=== PATIENT | female | born 1970 | race Caucasian/White ===

== ENCOUNTER 2023-11-02 08:33 | Outpatient (OUT) | payer BC, SELFPAY ==
[2023-11-02 09:08] LABS: Basophils Absolute Auto 0.1 10^3/uL (0.0-0.1); Basophils Percent Auto 1.6 % (0.2-2.0); Eosinophils Absolute Auto 0.2 10^3/uL (0.0-0.7); Eosinophils Percent Auto 4.8 % (0.9-7.0); Hematocrit 36.6 % (36.0-48.0); Hemoglobin 12.1 g/dL (12.0-16.0); Immature Granulocytes Abs Auto 0.01 10^3/uL (0.00-0.03); Immature Granulocytes Pct Auto 0.2 % (0.0-0.5); Lymphocytes Absolute Auto 2.6 10^3/uL (1.2-3.8); Mean Corpuscular HGB Conc 33.1 g/dL (29.9-35.2); Mean Corpuscular Hemoglobin 30.2 pg (26.7-34.0); Mean Corpuscular Volume 91.3 fL (81.0-99.0); Mean Platelet Volume 9.5 fL (9.5-13.5); Monocytes Absolute Auto 0.4 10^3/uL (0.3-0.8); Monocytes Percent Auto 7.3 % (1.7-12.0); Neutrophils Absolute Auto 1.7 10^3/uL (1.4-6.5); Neutrophils Percent Auto 34.1 % (43.0-75.0); Platelet Count 287 10^3/uL (150-450); Red Blood Count 4.01 10^6/uL (4.20-5.40); Red Cell Distribution Width 12.5 % (11.0-15.0)
[2023-11-02 09:09] LABS: Estimated Average Glucose 111 mg/dL; Glycohemoglobin A1C 5.5 % (4.5-6.2)
[2023-11-02 09:41] LABS: Alanine Aminotransferase 20 U/L (14-59); Alkaline Phosphatase 121 U/L (46-116); Aspartate Amino Transferase 16 U/L (15-37); BUN Creatinine Ratio 7.4; Bilirubin Total 0.6 mg/dL (0.2-1.0); Calcium 9.4 mg/dL (8.5-10.1); Carbon Dioxide 29.1 mmol/L (21.0-32.0); Chloride 100 mmol/L (98-107); Estimated GFR (African America >60 (>=60); Estimated GFR (Non-African Ame 53 (>=60); Glucose 86 mg/dL (74-106); Potassium 4.1 mmol/L (3.5-5.1); Sodium 137 mmol/L (136-145)
[2023-11-02 09:42] LABS: Albumin Globulin Ratio 1.2; Albumin Level 4.1 g/dL (3.4-5.0); Chol HDL Ratio 2.5; Cholesterol 228 mg/dL (<=200); Globulin 3.3 g/dL; HDL Cholesterol 90 mg/dL (40-60); Thyroid Stimulating Hormone 0.841 uIU/mL (0.358-3.740); Total Protein 7.4 g/dL (6.4-8.2); Triglycerides 51 mg/dL (<=150); VLDL CHOLESTEROL 10.2 mg/dL
== END 2023-11-02 08:34 | disposition home or self-care (01) ==
LOC: LAB 08:36
PROVIDERS: PCP Family Medicine; Visit Provider Family Medicine
DX: Z00.00 Encounter for general adult medical examination without abnormal findings (principal)
CPT/HCPCS: 36415; 80053; 80061; 83036; 84436; 84443; 84481; 85025

== ENCOUNTER 2024-08-04 06:37 | Emergency (ER) | payer OTHER, BC, SELFPAY ==
[2024-08-04 06:42] VITALS: BP 168/101; PULSE 102; TEMP 36.6; O2SAT 100; BMI 21.9
--- OUTSIDE RECORDS SUMMARY | 2024-08-04 06:47 | XMS_ITS | CCD ---
Author Organization [facility] Care Team Providers Care Finishing Trimmer Name Role Phone CARIN, DR KRAMER Primary Care Unavailable RADHA, PALOMA Admitting Unavailable RADHA, PALOMA Attending Valencia Alvarado, DR Moran Consulting Unavailable RADHA, PALOMA Consulting Unavailable CARIN, DR KRAMER Primary Care Unavailable HALLE, DR EMELYN Brooks Admitting Unavailable HALLE, DR EMELYN Brooks Attending Unavailable HALLE, DR EMELYN Brooks Consulting Unavailable QUITA MARCOS Consulting Unavailable CARIN, DR KRAMER Admitting Unavailable CARIN, DR KRAMER Attending Unavailable CARIN, DR KRAMER Primary Care Unavailable CARIN, DR KRAMER Primary Care Unavailable RADHA, PALOMA Admitting Unavailable PALOMA GARCIA Attending Unavailable DENILSON, DR LIZETT Caro Consulting Unavailable PALOMA GARCIA Consulting Unavailable Allergies Allergy Classification Reported Allergen(s) Allergy Type Date of Onset Reaction(s) Facility (2 sources) predniSONE Drug Allergy 09-01-2016 [facility] Repository Problems Problem Classification Problem Date Documented Da te Episodic/Chronic Abdominal pain (4 sources) Unspecified abdominal pain; Translations: [UNSPECIFIED ABDOMINAL PAIN] Onset: 12-13-2021 Episodic Allergic reactions (1 source) Dermatitis, unspecified; Translations: [DERMATITIS UNSPECIFIED] Onset: 12-13-2021 Episodic Fluid and electrolyte disorders (1 source) Dehydration; Translations: [DEHYDRATION] Onset: 12-15-2021 Episodic Headache; including migraine (4 sources) Migraine, unspecified, not intractable, without status migrainosus; Translations: [MIGRAINE UNS NOT INTRACT W/O SM] Onset: 08-16-2021 Chronic Headache; including migraine (1 source) Headache; including migraine; Translations: [HEADACHE UNSPECIFIED] Onset: 12-15-2021 Nausea and vomiting (1 source) Vomiting, unspecified; Translations: [VOMITING UNSPECIFIED] Onset: 12-15-2021 Episodic Other aftercare (1 source) Other terminal gauger (current) drug therapy; Translations: [OTH CARE HOME CURRENT DRUG THERAPY] Onset: 12-15-2021 Episodic Other connective tissue disease (1 source) Pain in left thigh; Translations: [PAIN IN LEFT THIGH] Onset: 12-15-2021 Episodic Other connective tissue disease (1 source) Pain in right thigh; Translations: [PAIN IN RIGHT THIGH] Onset: 12-15-2021 Episodic Other non-traumatic joint disorders (1 source) Pain in unspecified joint; Translations: [PAIN IN UNSPECIFIED JOINT] Onset: 12-13-2021 Episodic Other skin disorders (3 sources) Rash and other nonspecific skin eruption; Translations: [RASH OTH NONSPECIFIC SKIN ERUPTION] Onset: 12-09-2021 Episodic Other upper respiratory infections (1 source) Chronic sinusitis, unspecified; Translations: [CHRONIC SINUSITIS UNSPECIFIED] Onset: 08-17-2021 Chronic Unclassified (1 source) CONTACT W/AND (SUSP) EXPOS COVID-19; Translations: [CONTACT W/AND (SUSP) EXPOS COVID-19] Onset: 12-13-2021 Viral infection (1 source) Disease caused by 2019-nCoV; Translations: [UNVACCINATED COVID 19] Onset: 12-13-2021 Results Test Name Value Interpretation Reference Range Facil ity CARDIAC EMELYN ADMITon 022 CK <26 Normal 26-192 [facility] Comment on above: Performed By: #### C MP, CRP #### [facility] [address] [address] [address] Dena Winn CK.MB [Mass/Vol] 0.14 ng/mL Normal <=3.60 [facility] Comment on above: Performed By: #### C MP, CRP #### [facility] [address] [address] [address] Dena Winn HSTROP 4.9 pg/mL Normal 4.0-51.3 [facility] Comment on above: Result Comment: CUT- OFF POINTS HAVE BEEN ESTABLISHED BASED ON THE FOURTH UNIVERSAL DEFINITIONS OF MYOCARDIAL INFARCTION. THE UPPER REFERENCE LIMIT (URL) OF TROPONIN, DEFINED THE 99TH PERCENTILE OF cTnI DISTRIBUTION IN A REFERENCE POPULATION, HAS BEEN CONFIRMED THE DECISION THRESHOLD FOR GA DIAGNOSIS. Performed By: #### C MP, CRP #### [facility] [address] [address] [address] Dena Winn ADRIANA 40 ng/mL Normal 9-82 [facility] Comment on above: Performed By: #### C MP, CRP #### [facility] [address] [place] [address] Dr. Dena Winn CBC W MANUAL DIFFon 12-14-19 22 ANISOCYTOSIS 1+ Normal [facility] Comment on above: Performed By: #### C BCMAN #### [facility] [address] [place] [address] Dr. Dena Winn ATYPICAL LYMPH # Normal [facility] Comment on above: Performed By: #### C BCMAN #### [facility] [address] [place] [address] Dr. Dena Winn ATYPICAL LYMPH % Normal [facility] Comment on above: Performed By: #### C BCMAN #### [facility] [address] [place] [address] Dr. Dena Winn BAND # 0.3 103/ul Normal 0.0-0.3 [facility] Comment on above: Performed By: #### C BCMAN #### [facility] [address] [place] [address] Dr. Dena Winn BAND % 2 % Normal 0-5 [facility] Comment on above: Performed By: #### C BCMAN #### [facility] [address] [place] [address] Dr. Dena Winn BASOM # 0.00 103/ul Normal 0.00-0.10 [facility] Comment on above: Performed By: #### C BCMAN #### [facility] [address] [place] [address] Dr. Dena Winn BASOM % 0.0 % Critically low 0.2-2.0 [facility] Comment on above: Performed By: #### C BCMAN #### [facility] [address] [place] [address] Dr. Dena Winn BLAST # Normal [facility] Comment on above: Performed By: #### C BCMAN #### [facility] [address] [place] [address] Dr. Dena Winn BLAST % Normal [facility] Comment on above: Performed By: #### C TAMICA #### [facility] [address] [address] [address] Dena Winn CORRECTED WBC Normal 4.0-11.0 [facility] Comment on above: Performed By: #### C TAMICA #### [facility] [address] [address] [address] Dena Winn EOS # 0.00 103/ul Normal 0.00-0.70 [facility] Comment on above: Performed By: #### C TAMICA #### [facility] [address] [address] [address] Dena Winn EOS% 0.0 % Critically low 0.9-7.0 [facility] Comment on above: Performed By: #### C TAMICA #### [facility] [address] [address] [address] Dena Winn HCT 33.2 % Critically low 36.0-48.0 [facility] Comment on above: Performed By: #### C TAMICA #### [facility] [address] [address] [address] Dena Winn HGB 11.3 g/dl Critically low 12.0-16.0 [facility] Comment on above: Performed By: #### C TAMICA #### [facility] [address] [address] [address] Dena Winn LYMPHM # 4.06 103/ul Critically high 1.20-3.80 [facility] Comment on above: Performed By: #### C TAMICA #### [facility] [address] [address] [address] Dena Winn LYMPHM% 26.0 % Normal 20.5-60.0 [facility] Comment on above: Performed By: #### C TAMICA #### [facility] [address] [address] [address] Dena Winn MCH 30.5 pg Normal 26.7-34.0 [facility] Comment on above: Performed By: #### C TAMICA #### [facility] [address] [place] [address] Dr. Dena Winn MCHC 34.0 g/dl Normal 29.9-35.2 [facility] Comment on above: Performed By: #### C TAMICA #### [facility] [address] [place] [address] Dr. Dena Winn MCV 89.5 fL Normal 81.0-99.0 [facility] Comment on above: Performed By: #### C TAMICA #### [facility] [address] [place] [address] Dr. Dena Winn METAMYELOCYTE # Normal [facility] Comment on above: Performed By: #### C TAMICA #### [facility] [address] [place] [address] Dr. Dena Winn METAMYELOCYTE % Normal [facility] Comment on above: Performed By: #### C TAMICA #### [facility] [address] [place] [address] Dr. Dena Winn MONOM# 1.87 103/ul Critically high 0.30-0.[address] [facility] Comment on above: Performed By: #### C TAMICA #### [facility] [address] [place] [address] Dr. Dena Winn MONOM% 12.0 % Normal 1.7-12.0 [facility] Comment on above: Performed By: #### C TAMICA #### [facility] [address] [place] [address] Dr. Dena Winn MPV 9.2 fL Critically low 9.5-13.5 [facility] Comment on above: Performed By: #### C TAMICA #### [facility] [address] [place] [address] Dr. Dena Winn MYELOCYTE # Normal [facility] Comment on above: Performed By: #### C TAMICA #### [facility] [address] [place] [address] Dr. Dena Winn MYELOCYTE % Normal [facility] Comment on above: Performed By: #### C TAMICA #### [facility] [address] [place] [address] Dr. Dena Winn NRBC Normal [facility] Comment on above: Performed By: #### C BCMAN #### [facility] [address] [place] [address] Dr. Dena Winn PLT 337 103/ul Normal 150-450 [facility] Comment on above: Performed By: #### C BCMAN #### [facility] [address] [place] [address] Dr. Dena Winn RBC 3.71 106/ul Critically low 4.20-5.40 [facility] Comment on above: Performed By: #### C BCMAN #### [facility] [address] [place] [address] Dr. Dena Winn RDW 14.2 % Normal 11.0-15.0 [facility] Comment on above: Performed By: #### C BCMAN #### [facility] [address] [place] [address] Dr. Dena Winn SEG # 9.36 103/ul Critically high 1.40-6.[address] [facility] Comment on above: Performed By: #### C BCMAN #### [facility] [address] [place], [place] [id number] Dr. Dena Winn SEG % 60.0 % Normal 43.0-75.0 [facility] Comment on above: Performed By: #### C BCMAN #### [facility] [address] [place] [address] Dr. Dena Winn WBC 15.6 103/ul Critically high 4.0-11.[address] [facility] Comment on above: Performed By: #### C BCMAN #### [facility] [address] [place] [address] ABD/PELVIS WO CONon 12-13 CT ABD/PELVIS WO CON EXAMINATION: CT ABD/PELVIS WO CON HISTORY: UNSPECIFIED ABDOMINAL PAIN , disorientation, bilateral lower quadrant pain COMPARISON: No relevant comparison available. TECHNIQUE: Axial, Coronal, and Sagittal images were created without IV contrast. Dose reduction techniques were achieved by using automated exposure control and/or adjustment of mA and/or kV according to patient size and/or use of iterative reconstruction technique. FINDINGS: LUNG BASES: No visible pulmonary or pleural disease. LIVER: No enlargement, atrophy, suspicious density, or significant focal lesion. BILIARY: No dilatation or calcification. PANCREAS: No lesion, fluid collection, or abnormal duct dilatation. SPLEEN: No enlargement or focal lesion. ADRENALS: No mass or enlargement. KIDNEYS: No mass, obstruction, or calcification. BOWEL/MESENTERY: Large amount of stool within proximal and mid colon. No visible mass, obstruction, or bowel wall thickening. Normal appendix. AORTA/VASCULAR: No aneurysm or dissection. RETROPERITONEUM: No mass or adenopathy. LYMPH NODES: No adenopathy. URINARY BLADDER: No visible focal wall thickening, lesion, or calculus. PELVIC ORGANS: No visible mass. Pelvic organs appropriate for patient age. ABDOMINAL WALL: No mass or hernia. BONES: No bony lesion or fracture. OTHER: Negative. IMPRESSION: 1. No acute or suspicious findings to account for patient's symptoms. Electronically authenticated by: AGUSTIN ALVARADO Date: 2021-12-13 12:14 Normal [facility] CT HEAD WO CONon 12-13-2021 CT HEAD WO CON EXAMINATION: CT HEAD WO CON HISTORY: DISORIENTATION, UNSPECIFIED , frontal headache COMPARISON: No relevant comparison available. TECHNIQUE: Axial CT images were obtained without IV contrast. Dose reduction techniques were achieved by using automated exposure control and/or adjustment of mA and/or kV according to patient size and/or use of iterative reconstruction technique. FINDINGS: BRAIN: No edema, hemorrhage, mass, acute infarction, or inappropriate atrophy. CSF SPACES: No hydrocephalus, subarachnoid hemorrhage, or mass. Appropriate for age. SKULL: No fracture, mass, or other significant visible lesion. SINUSES: No significant mucosal thickening or fluid on the limited views. ORBITS: No appreciable abnormality on the limited views. OTHER: Negative IMPRESSION: 1. Normal CT appearance of the brain. Electronically authenticated by: AGUSTIN ALVARADO Date: 2021-12-13 12:06 Normal [facility] ER URINE PROFILEon 2 Bilirubin Ql (U) Negative Normal NEGATIVE [facility] Comment on above: Performed By: #### E RUR #### [facility] [address] [place] [address] Dr. Dena Winn Clarity (U) SL CLOUDY Abnormal CLEAR [facility] Comment on above: Performed By: #### E RUR #### [facility] [address] [place] [address] Dr. Dena Winn Color (U) LT. YELLOW Normal YELLOW [facility] Comment on above: Performed By: #### E RUR #### [facility] [address] [place] [address] Dr. Dena Winn ERUAHD A micrscopic examination will be performed if indicated. Normal [facility] Comment on above: Performed By: #### E RUR #### [facility] [address] [place] [address] Dr. Dena Winn Glucose Ql (U) Negative Normal NEGATIVE [facility] Comment on above: Performed By: #### E RUR #### [facility] [address] [place] [address] Dr. Dena Winn Hemoglobin Ql (U) Negative Normal NEGATIVE [facility] Comment on above: Performed By: #### E RUR #### [facility] [address] [place] [address] Dr. Dena Winn Ketones Ql (U) Negative Normal NEGATIVE [facility] Comment on above: Performed By: #### E RUR #### [facility] [address] [place] [address] Dr. Dena Winn LEUKOCYTES Negative Normal NEGATIVE [facility] Comment on above: Performed By: #### E RUR #### [facility] [address] [place] [address] Dr. Dena Winn Nitrite Ql (U) Negative Normal NEGATIVE [facility] Comment on above: Performed By: #### E RUR #### [facility] [address] [place] [address] Dr. Dena Winn pH (U) 8.5 [pH] Normal 5-9 [facility] Comment on above: Performed By: #### E RUR #### [facility] [address] [place] [address] Dr. Dena Winn SPEC GRAVITY 1.015 Normal 1.005-<=1.025 [facility] Comment on above: Performed By: #### E RUR #### [facility] [address] [place] [address] Dr. Dena Winn UA PROTEIN Negative Normal NEGATIVE/ TRACE [facility] Comment on above: Performed By: #### E RUR #### [facility] [address] [place] [address] Dr. Dena Winn UR MICRO IND NOT INDICATED Normal [facility] Comment on above: Performed By: #### E RUR #### [facility] [address] [place] [address] Dr. Dena Winn Urobilinogen Qn (U) 0.2 {Manoj'U}/dL Normal 0.2 - 1. 0 [facility] Comment on above: Performed By: #### E RUR #### [facility] [address] [place] [address] Dr. Dena Winn PROF 14(COMP METB)on 022 Albumin [Mass/Vol] 3.3 g/dL Critically low 3.4-5.0 [facility] Comment on above: Performed By: #### C MP, CRP #### [facility] [address] [place] [address] Dr. Dena Winn Albumin/Globulin [Mass ratio] 1.0 {ratio} Normal [facility] Comment on above: Performed By: #### C MP, CRP #### [facility] [address] [place] [address] Dr. Dena Winn ALP [Catalytic activity/Vol] 123 U/L Critically high 46-116 [facility] Comment on above: Performed By: #### C MP, CRP #### [facility] [address] [place] [address] Dr. Dena Winn ALT [Catalytic activity/Vol] 43 U/L Normal 14-59 [facility] Comment on above: Performed By: #### C MP, CRP #### [facility] [address] [place] [address] Dr. Dena Winn Anion gap [Moles/Vol] 13.7 mmol/L Normal [facility] Comment on above: Performed By: #### C MP, CRP #### [facility] [address] [address] [address] Dena Winn AST [Catalytic activity/Vol] 16 U/L Normal 15-37 [facility] Comment on above: Performed By: #### C MP, CRP #### [facility] [address] [address] [address] Dena Winn Bilirubin [Mass/Vol] 0.6 mg/dL Normal 0.2-1.0 [facility] Comment on above: Performed By: #### C MP, CRP #### [facility] [address] [address] [address] Dena Winn Calcium [Mass/Vol] 9.0 mg/dL Normal 8.5-10.1 [facility] Comment on above: Performed By: #### C MP, CRP #### [facility] [address] [place] [address] Dr. Dena Winn Chloride [Moles/Vol] 102 mmol/L Normal 98-107 [facility] Comment on above: Performed By: #### C MP, CRP #### [facility] [address] [address] [address] Dena Winn CO2 [Moles/Vol] 24.4 mmol/L Normal 21.0-32.[address] [facility] Comment on above: Performed By: #### C MP, CRP #### [facility] [address] [place] [address] Dr. Dena Winn Creatinine [Mass/Vol] 1.08 mg/dL Critically high 0.55-1.02 [facility] Comment on above: Performed By: #### C MP, CRP #### [facility] [address] [address] [address] Dena Winn EGFR-AF MALAYSIAN >60 Normal >=[address] [facility] Comment on above: Performed By: #### C MP, CRP #### [facility] [address] [address] [address] Dena Winn EGFR-NON AF MALAYSIAN 53 mL/min/1.73m2 Critically low >=60 [facility] Comment on above: Performed By: #### C MP, CRP #### [facility] [address] [address] [address] Dena Winn Globulin (S) [Mass/Vol] 3.3 g/dL Normal [facility] Comment on above: Performed By: #### C MP, CRP #### [facility] [address] [address] [address] Dena Winn Glucose [Mass/Vol] 100 mg/dL Normal 74-[address] [facility] Comment on above: Performed By: #### C MP, CRP #### [facility] [address] [address] [address] Dena Winn Potassium [Moles/Vol] 3.1 mmol/L Critically low 3.5-5.1 [facility] Comment on above: Performed By: #### C MP, CRP #### [facility] [address] [place] [address] Dr. Dena Winn Protein [Mass/Vol] 6.6 g/dL Normal 6.4-8.[address] [facility] Comment on above: Performed By: #### C MP, CRP #### [facility] [address] [address] [address] Dena Winn Sodium [Moles/Vol] 137 mmol/L Normal 136-145 [facility] Comment on above: Performed By: #### C MP, CRP #### [facility] [address] [place] [address] Dr. Dena Winn Urea nitrogen [Mass/Vol] 13.0 mg/dL Normal 7.0-18.0 [facility] Comment on above: Performed By: #### C MP, CRP #### [facility] [address] [address] [address] Dena Winn Urea nitrogen/Creatinine [Mass ratio] 12.0 mg/mg Normal [facility] Comment on above: Performed By: #### C MP, CRP #### [facility] [address] [address] [address] Dena Winn CBC AUTO DIFFon 12-09-2021 BASO # 0.0 103/ul Normal 0.0-0.1 [facility] Comment on above: Performed By: #### C MP, CRP #### [facility] [address] [place] [address] Dr. Dena Winn Basophils/100 WBC (Bld) 0.2 % Normal 0.2-2.0 [facility] Comment on above: Performed By: #### C MP, CRP #### [facility] [address] [place] [address] Dr. Dena Winn EO # 0.0 103/ul Normal 0.0-0.7 [facility] Comment on above: Performed By: #### C MP, CRP #### [facility] [address] [place] [address] Dr. Dena Winn Eosinophils/100 WBC (Bld) 0.1 % Critically low 0.9-7.0 [facility] Comment on above: Performed By: #### C MP, CRP #### [facility] [address] [place] [address] Dr. Dena Winn Erythrocyte distribution width (RBC) [Ratio] 14.1 % Normal 11.0-15.0 [facility] Comment on above: Performed By: #### C MP, CRP #### [facility] [address] [place] [address] Dr. Dena Winn Hematocrit (Bld) [Volume fraction] 35.1 % Critically low 36.0-48.0 [facility] Comment on above: Performed By: #### C MP, CRP #### [facility] [address] [place] [address] Dr. Dena Winn Hemoglobin (Bld) [Mass/Vol] 12.1 g/dL Normal 12.0-16.0 [facility] Comment on above: Performed By: #### C MP, CRP #### [facility] [address] [place] [address] Dr. Dena Winn IG # 0.03 10e3/ul Normal 0.00-0.03 [facility] Comment on above: Performed By: #### C MP, CRP #### [facility] [address] [place] [address] Dr. Dena Winn IG % 0.4 % Normal 0.0-0.5 [facility] Comment on above: Performed By: #### C MP, CRP #### [facility] [address] [place] [address] Dr. Dena Winn LYMPH # 1.8 103/ul Normal 1.2-3.8 [facility] Comment on above: Performed By: #### C MP, CRP #### [facility] [address] [place] [address] Dr. Dena Winn Lymphocytes/100 WBC (Bld) 21.7 % Normal 20.5-60.0 [facility] Comment on above: Performed By: #### C MP, CRP #### [facility] [address] [place] [address] Dr. Dena Winn MANUAL DIFF REQ NO Normal [facility] Comment on above: Performed By: #### C MP, CRP #### [facility] [address] [place] [address] Dr. Dena Winn MCH (RBC) [Entitic mass] 30.6 pg Normal 26.7-34.0 [facility] Comment on above: Performed By: #### C MP, CRP #### [facility] [address] [place] [address] Dr. Dena Winn MCHC (RBC) [Mass/Vol] 34.5 g/dL Normal 29.9-35.2 [facility] Comment on above: Performed By: #### C MP, CRP #### [facility] [address] [place] [address] Dr. Dena Winn MCV (RBC) [Entitic vol] 88.9 fL Normal 81.0-99.0 [facility] Comment on above: Performed By: #### C MP, CRP #### [facility] [address] [place] [address] Dr. Dena Winn MONO # 0.3 103/ul Normal 0.3-0.8 [facility] Comment on above: Performed By: #### C MP, CRP #### [facility] [address] [place] [address] Dr. Dena Winn Monocytes/100 WBC (Bld) 4.0 % Normal 1.7-12.0 [facility] Comment on above: Performed By: #### C MP, CRP #### [facility] [address] [place] [address] Dr. Dena Winn NEUT # 6.0 103/ul Normal 1.4-6.5 [facility] Comment on above: Performed By: #### C MP, CRP #### [facility] [address] [place] [address] Dr. Dena Winn Neutrophils/100 WBC (Bld) 73.6 % Normal 43.0-75.0 [facility] Comment on above: Performed By: #### C MP, CRP #### [facility] [address] [place] [address] Dr. Dena Winn Platelet mean volume (Bld) [Entitic vol] 11.5 fL Normal 9.5-13.5 [facility] Comment on above: Performed By: #### C MP, CRP #### [facility] [address] [place] [address] Dr. Dena Winn PLT 108 103/ul Critically low 150-450 [facility] Comment on above: Performed By: #### C MP, CRP #### [facility] [address] [place] [address] Dr. Dena Winn RBC 3.95 106/ul Critically low 4.20-5.40 [facility] Comment on above: Performed By: #### C MP, CRP #### [facility] [address] [place] [address] Dr. Dena Winn WBC 8.1 103/ul Normal 4.0-11.0 [facility] Comment on above: Performed By: #### C MP, CRP #### [facility] [address] [place] [address] Dr. Dena Winn CRPon 12-09-2021 CRP 31.8 mg/dL Critically high <=1.0 [facility] Comment on above: Performed By: #### C MP, CRP #### [facility] [address] [place] [address] Dr. Dena Winn CULTURE BLOODon 12-09-2021 Microscopic examination of blood, culture Culture Observations: NO GROWTH AT 5 DAYS. Normal [facility] Comment on above: Performed By: #### C MP, CRP #### [facility] [address] [place] [address] Dr. Dena Winn Microscopic examination of blood, culture Culture Observations: NO GROWTH AT 5 DAYS. Normal [facility] Comment on above: Performed By: #### C MP, CRP #### [facility] [address] [address] [address] Dena Winn Covid-19 PCR (CVDTB)on 11-30 SARS-CoV-2 (COVID-19) RNA PAM+probe Ql (Unsp spec) Not detected Normal NOT DETECTED [facility] Comment on above: Result Comment: When diagnostic testing is negative, the possibility of a false negative should be considered in the context of a patient's recent exposures and the presence of clinical signs and symptoms consistent with SARS-CoV-2. This test is not yet approved or cleared by the [place] FDA. When there are no FDA-approved or cleared tests available, and other criteria are met, FDA can make tests available under an emergency access mechanism called an Emergency Use Authorization (EUA). The EUA for this test is supported by the [place] of Health and Human Service's declaration that circumstances exist to justify the emergency use of in vitro diagnostics for the detection and/or diagnosis of the virus that causes COVID-19. This EUA will remain in effect for the duration of the COVID-19 declaration justifying emergency of IVDs, unless it is terminated or revoked by the FDA (after which the test may no longer be used). Performed By: #### C VDTBH #### [facility] [address] [place] [address] Dr. Dena Winn ER URINE PROFILEon 2 Bilirubin Ql (U) Negative Normal NEGATIVE [facility] Comment on above: Performed By: #### E AR SAL #### [facility] [address] [place] [address] Dr. Dena Winn Clarity (U) CLEAR Normal CLEAR [facility] Comment on above: Performed By: #### Cammie SAL UMICRO #### [facility] [address] [place] [address] Dr. Dena Winn Color (U) LT. YELLOW Normal YELLOW [facility] Comment on above: Performed By: #### Cammie SAL UMICRO #### [facility] [address] [place] [address] Dr. Dena Winn ERUAHKalee A micrscopic examination will be performed if indicated. Normal [facility] Comment on above: Performed By: #### Cammie SAL UMICRO #### [facility] [address] [place] [address] Dr. Dena Winn Glucose Ql (U) Negative Normal NEGATIVE [facility] Comment on above: Performed By: #### Cammie SAL UMICRO #### [facility] [address] [place] [address] Dr. Dena Winn Hemoglobin Ql (U) Negative Normal NEGATIVE [facility] Comment on above: Performed By: #### Cammie SAL UMICRO #### [facility] [address] [place] [address] Dr. Dena Winn Ketones Ql (U) TRACE Abnormal NEGATIVE [facility] Comment on above: Performed By: #### Cammie SAL UMICRO #### [facility] [address] [place] [address] Dr. Dena Winn LEUKOCYTES TRACE Abnormal NEGATIVE [facility] Comment on above: Performed By: #### Cammie SAL UMICRO #### [facility] [address] [place] [address] Dr. Dena Winn Nitrite Ql (U) Negative Normal NEGATIVE [facility] Comment on above: Performed By: #### Cammie SAL UMICRO #### [facility] [address] [place] [address] Dr. Dena Winn pH (U) 7.0 [pH] Normal 5-9 [facility] Comment on above: Performed By: #### Cammie SAL UMICRO #### [facility] [address] [place] [address] Dr. Dena Winn SPEC GRAVITY 1.010 Normal 1.005-<=1.025 [facility] Comment on above: Performed By: #### Cammie SAL UMABDIASRO #### [facility] [address] [place] [address] Dr. Dena Winn UA PROTEIN TRACE Normal NEGATIVE/ TRACE [facility] Comment on above: Performed By: #### SHAYE TOSCANORO #### [facility] [address] [place] [address] Dr. Dena Winn UR MICRO IND INDICATED Normal [facility] Comment on above: Performed By: #### SHAYE TOSCANORO #### [facility] [address] [place] [address] Dr. Dena Winn Urobilinogen Qn (U) 1.0 {Manoj'U}/dL Normal 0.2 - 1. 0 [facility] Comment on above: Performed By: #### SHAYE TOSCANORO #### [facility] [address] [place] [address] Dr. Dena Winn GROUP A STREP CULTUREon 11-30 S. pyogenes Ag Ql (Unsp spec) Culture Observations: Negative for Group A Streptococcus Normal [facility] Comment on above: Performed By: #### S SCRN, GRASTCX #### [facility] [address] [place] [address] Dr. Dena Winn INFLUENZA A AND B AGon 12-09 INFLUANEGH SEE BELOW Normal [facility] Comment on above: Result Comment: Nega tive for Flu A protein angiten. Infection due to Flu A cannot be ruled out. Flu A angiten in the sample may be below the detection limit of the test. Performed By: #### I NFLUAB #### [facility] [address] [place] [address] Dr. Dena Winn INFLUBNEGH SEE BELOW Normal [facility] Comment on above: Result Comment: Nega tive for Flu B protein antigen. Infection due to Flu B cannot be ruled out. Flu B antigen in the sample may be below the detection limit of the test. Performed By: #### I NFLUAB #### [facility] [address] [place] [address] Dr. eDna Winn INFLUENZA A AG Negative Normal NEGATIVE SEE COMMENT [facility] Comment on above: Performed By: #### I NFLUAB #### [facility] [address] [place] [address] Dr. Dena Winn INFLUENZA B AG Negative Normal NEGATIVE SEE COMMENT [facility] Comment on above: Performed By: #### I NFLUAB #### [facility] [address] [place] [address] Dr. Dena Winn INTERNAL CONTROLS Within Normal Limits Normal Wi thin Normal Limits [facility] Comment on above: Performed By: #### I NFLUAB #### [facility] [address] [place] [address] Dr. Dena Winn LACTATE/LACTIC ACIDon 2021 Lactate [Moles/Vol] 0.6 mmol/L Normal 0.4-1.[address] [facility] Comment on above: Performed By: #### C MP, CRP #### [facility] [address] [place] [address] Dr. Dena Winn MONOon 12-09-2021 Monocytes (Bld) [#/Vol] Negative Normal NEGATIVE [facility] Comment on above: Performed By: #### M MEGHANA #### [facility] [address] [place] [address] Dr. Dena Winn PROF 14(COMP METB)on 022 Albumin [Mass/Vol] 3.1 g/dL Critically low 3.4-5.0 [facility] Comment on above: Performed By: #### C MP, CRP #### [facility] [address] [place] [address] Dr. Dena Winn Albumin/Globulin [Mass ratio] 0.9 {ratio} Normal [facility] Comment on above: Performed By: #### C MP, CRP #### [facility] [address] [place] [address] Dr. Dena Winn ALP [Catalytic activity/Vol] 155 U/L Critically high 46-116 [facility] Comment on above: Performed By: #### C MP, CRP #### [facility] [address] [address] [address] Dena Winn ALT [Catalytic activity/Vol] 63 U/L Critically high 14-59 [facility] Comment on above: Performed By: #### C MP, CRP #### [facility] [address] [address] [address] Dena Winn Anion gap [Moles/Vol] 13.6 mmol/L Normal [facility] Comment on above: Performed By: #### C MP, CRP #### [facility] [address] [address] [address] Dena Winn AST [Catalytic activity/Vol] 38 U/L Critically high 15-37 [facility] Comment on above: Performed By: #### C MP, CRP #### [facility] [address] [address] [address] Dena Winn Bilirubin [Mass/Vol] 0.4 mg/dL Normal 0.2-1.0 [facility] Comment on above: Performed By: #### C MP, CRP #### [facility] [address] [address] [address] Dena Winn Calcium [Mass/Vol] 8.8 mg/dL Normal 8.5-10.1 [facility] Comment on above: Performed By: #### C MP, CRP #### [facility] [address] [address] [address] Dena Winn Chloride [Moles/Vol] 97 mmol/L Critically low 98-107 [facility] Comment on above: Performed By: #### C MP, CRP #### [facility] [address] [address] [address] Dena Winn CO2 [Moles/Vol] 26.0 mmol/L Normal 21.0-32.0 [facility] Comment on above: Performed By: #### C MP, CRP #### [facility] [address] [address] [address] Dena Winn Creatinine [Mass/Vol] 1.13 mg/dL Critically high 0.55-1.02 [facility] Comment on above: Performed By: #### C MP, CRP #### [facility] [address] [address] [address] Dena Winn EGFR-AF MALAYSIAN >60 Normal >=[address] [facility] Comment on above: Performed By: #### C MP, CRP #### [facility] [address] [address] [address] Dena Winn EGFR-NON AF MALAYSIAN 51 mL/min/1.73m2 Critically low >=60 [facility] Comment on above: Performed By: #### C MP, CRP #### [facility] [address] [address] [address] Dena Winn Globulin (S) [Mass/Vol] 3.4 g/dL Normal [facility] Comment on above: Performed By: #### C MP, CRP #### [facility] [address] [place] [address] Dr. Dena Winn Glucose [Mass/Vol] 91 mg/dL Normal 74-106 [facility] Comment on above: Performed By: #### C MP, CRP #### [facility] [address] [address] [address] Dena Winn Potassium [Moles/Vol] 3.6 mmol/L Normal 3.5-5.1 [facility] Comment on above: Performed By: #### C MP, CRP #### [facility] [address] [place] [address] Dr. Dena Winn Protein [Mass/Vol] 6.5 g/dL Normal 6.4-8.2 [facility] Comment on above: Performed By: #### C MP, CRP #### [facility] [address] [address] [address] Dena Winn Sodium [Moles/Vol] 133 mmol/L Critically low 136-145 [facility] Comment on above: Performed By: #### C MP, CRP #### [facility] [address] [address] [address] Dena Winn Urea nitrogen [Mass/Vol] 17.0 mg/dL Normal 7.0-18.0 [facility] Comment on above: Performed By: #### C MP, CRP #### [facility] [address] [address] [address] Dena Winn Urea nitrogen/Creatinine [Mass ratio] 15.0 mg/mg Normal [facility] Comment on above: Performed By: #### C MP, CRP #### [facility] [address] [address] [address] Dena Winn SED RATE WESTERGRENon 2021 SED RATE 32 mm/hr Critically high <=30 [facility] Comment on above: Performed By: #### C MP, CRP #### [facility] [address] [place] [address] Dr. Dena Winn STREPT SCREENon 12-09-2021 STREP SCREEN A Negative Normal NEGATIVE [facility] Comment on above: Performed By: #### S SCRN, GRASTCX #### [facility] [address] [place] [address] Dr. Dena Winn URINE MICROSCOPIC ONLYon BACTERIA NONE SEEN Normal NONE SEEN [facility] Comment on above: Performed By: #### C MP, CRP #### [facility] [address] [place] [address] Dr. Dena Winn Bacteria identified Cx Nom (U) NOT INDICATED Normal [facility] Comment on above: Performed By: #### C MP, CRP #### [facility] [address] [place] [address] Dr. Dena Winn CAST NONE SEEN Normal NONE SEEN [facility] Comment on above: Performed By: #### C MP, CRP #### [facility] [address] [place] [address] Dr. Dena Winn Crystals LM Nom (Urine sed) NONE SEEN Normal NONE SEEN [facility] Comment on above: Performed By: #### C MP, CRP #### [facility] [address] [place] [address] Dr. Dena Winn Epithelial cells LM Ql (Urine sed) FEW Abnormal NONE SEEN /RARE [facility] Comment on above: Performed By: #### C MP, CRP #### [facility] [address] [place], [place] [id number] Dr. Dena Winn MUCOUS NONE SEEN Normal NONE SEEN [facility] Comment on above: Performed By: #### C MP, CRP #### [facility] [address] [place] [address] Dr. Dena Winn RBC NONE SEEN Abnormal 0-2 [facility] Comment on above: Performed By: #### C MP, CRP #### [facility] [address] [address] [address] Dena Winn WBC 0-2 Abnormal NONE SEEN [facility] Comment on above: Performed By: #### C MP, CRP #### [facility] [address] [address] [address] Dena Winn XR CHEST 1 Von 12-09-2021 XR CHEST 1 V EXAMINATION: XR CHEST 1 V HISTORY: COUGH COMPARISON: 03/04/2018 TECHNIQUE: AP portable erect FINDINGS: LUNGS: No significant pulmonary parenchymal abnormalities. VASCULATURE: No increased pulmonary vasculature. PLEURA: No pneumothorax, effusion, or pleural thickening. Elevation of the left hemidiaphragm CARDIAC: No cardiomegaly or cardiac silhouette abnormality. MEDIASTINUM: No visible mass or adenopathy. BONES: No fracture or visible bone lesion. OTHER: Negative. IMPRESSION: Clear lungs Electronically authenticated by: LIZETT OREILLY Date: 2021-12-09 11:49 Normal [facility] CT HEAD WO CONon 08-16-2021 CT HEAD WO CON INDICATION: 51 years old; Female. Headache. History of migraine. TECHNIQUE: CT Head (ax/cor/sag reformats). Ionizing radiation dose reduced via iterative reconstruction/FBP blend and body size kV/mA adjustment. Comparison: None FINDINGS: POSTOPERATIVE CHANGES: None. BRAIN PARENCHYMA: No hemorrhage, mass or acute infarct. White matter is normal for age. VENTRICLES/EXTRA-AXI AL SPACES: No hydrocephalus. SINUSES/MASTOIDS: Minimal mucoperiosteal thickening the ethmoid sinuses. No fluid levels. Mastoid air cells are clear. MSK: No skull fractures. OTHER: No hyperdense intraluminal thrombus is seen. IMPRESSION: 1. No acute intracranial abnormality. No hemorrhage or mass effect. 2. Ethmoid thickening. Electronically authenticated by: QUITA MARCOS Date: 2021-08-16 00:00 Normal [facility] Encounters Encounter Date Encounter Type Care Provider Facility Start: 12-13-2021 End: 12-13-[address] CARVAJALJOEY GAMASamson Facility:[facility] Start: 12-09-2021 End: 12-09-[address] CARVAJALJOEY GAMASamson Facility:[facility] Start: 08-24-[address] CARVAJALJOEY DEL ROSARIO Facility :[facility] Start: 08-16-2021 End: 08-16-[address] CARVAJALJOEY GAMASamson Facility:[facility] Payers Date Payer Category Payer Unknown [id number] 2.16.84 [id number] 1970 Unknown [id number] 2.16.84 [id number] 1970 Unknown [id number] 2.16.84 [id number] 1970 Unknown [id number] 2.16.84 [id number] 1959 Self-pay [id number] 1959 Unknown [id number] Summary Purpose Family History No Family History Records Found Advance Directives No Advanced Directives Records Found Additional Source Comments INFORMATION SOURCE (unrecogn ized section and content) DATE CREATED AUTHOR 12/15/2021 [facility] FOR RECORDS PERTAINING TO PATIENTS WHO ARE OR HAVE BEEN ENROLLED IN A CHEMICAL DEPENDENCY/SUBSTANCEABUSE PROGRAM, SOME INFORMATION MAY BE OMITTED. This clinical summary was aggregated from multiple sources. Caution should be exercised in using it in the provision of clinical care. This summary normalizes information from multiple sources, and as a consequence, information in this document may materially change the coding, format and clinical context of patient data. In addition, data may be omitted in some cases. CLINICAL DECISIONS SHOULD BE BASED ON THE PRIMARY CLINICAL RECORDS. [employer] provides no warranty or guarantee of the accuracy or completeness of information in this document.
--- NOTE | 2024-08-04 06:51 | ED_ITS ---
HPI HPI - General Adult General Chief complaint: Headache Stated complaint: HEADACHE Time Seen by Provider: 08/04/24 06:45 Source: patient Mode of arrival: walk-in Limitations: no limitations History of Present Illness HPI narrative: The patient is a 54-year-old female with a history of syringomyelia and daily headaches. She is presenting today for a migraine headache that has been prese nt for 8 days. She believes that the barometric pressure has made it worse. Nothing has made it better. She is prescribed sumatriptan, which she took last night and again this morning without any relief. Patient states that she is also prescribed [place] but she does not like to take them because she does not want to get addicted. Patient states that the headache is all over. It is associated with photophobia and intense nausea and vomiting. Patient's not been able to eat or drink for several days. The pain is a 10 out of 10 but is not the worst headache she is ever had in her life. She states that she lives with daily headaches but the level is typically of 4-5 out of 10. Patient does not have any neurologic symptoms such as confusion, incoordination, trouble speaking, trouble comprehending, numbness or weakness. Patient has had numerous imaging including CTs and MRIs. Patient saw Dr. Mejia for this last week. He provided her an injection which she believes was Toradol and Nubain. Patient states that the headache does not radiate. It is throbbing like in sensation. Related Data Allergies Allergy/AdvReac Type Severity Reaction Status Date / Time No Known Drug Allergies Allergy Verified 08/04/24 06:41 Opioid HPI Opioid Management Most Recent Opioid Data: Last Pain Scale 10 08/04/24 06:48 08/04/24 Review of Systems ROS Narrative 10 Systems were reviewed, and unless not ed in the HPI, all other systems are reviewed, unremarkable, or noncontributory. PFSH PFS Social History Little interest or pleasure in doing things: not at all Feeling down, depressed, or hopeless: not at all Exam Narrative Exam Narrative: Prior to examining the patient, I have washed with hospital approved and provided Antiseptic Hand Packaging Line Attendant and have also applied gloves.? Prior to touching the patient, I asked for consent to examine the patient.? General: Alert and oriented, well nourished, moderate distress, tearful Eye: This was deferred due to profound photophobia HENT: Normocephalic, normal hearing, moist oral mucosa, no scleral icterus, No meningeal signs. The patient is hard of hearing Neck: Supple, non-tender, no carotid bruits, no JVD, no lymphadenopathy. Lungs: Clear to auscultation and percussion, non-labored respiration. Heart: Normal rate, regular rhythm, no murmur, gallop or edema. Abdomen: Soft, non-tender, non-distended, normal bowel sounds, no masses. Musculoskeletal: Normal range of motion and strength, no tenderness or swelling. Skin: Skin is warm, dry and pink, no rashes or lesions. Neurologic: Awake, alert, and oriented X3, CN II-XII intact. Psychiatric: Cooperative, appropriate mood and affect.? Following the conclusion of the examination, I have washed my hands thoroughly after removing examination gloves. Constitutional Vital Signs, click to edit/add: Last Vital Signs Temp 97.9 F 08/04/24 06:42 Pulse 102 H 08/04/24 06:42 Resp 16 08/04/24 06:42 BP 168/101 H 08/04/24 06:42 Pulse Ox 100 08/04/24 06:42 O2 Del Method Room Air 08/04/24 06:42 Course Course Hospital Course: Upon initially seeing the patient, I had ordered her an IV, IV fluid 0.9% normal saline 1 L bolus, Toradol 15 mg IV push, Reglan 10 mg IV piggyback, Benadryl 50 mg IV push. Oncoming physician is Dr. Rodriguez and I will be doing signout at 7 AM. Vital Signs Vital signs: Vital Signs Temperature 97.9 F 08/04/24 06:42 Pulse Rate 102 H 08/04/24 06:42 Respiratory Rate 16 08/04/24 06:42 Blood Pressure 168/101 H 08/04/24 06:42 Pulse Oximetry 100 08/04/24 06:42 Oxygen Delivery Method Room Air 08/04/24 06:42 Temperature 97.9 F 08/04/24 06:42 Pulse Rate 102 H 08/04/24 06:42 Respiratory Rate 16 08/04/24 06:42 Blood Pressure 168/101 H 08/04/24 06:42 Pulse Oximetry 100 08/04/24 06:42 Oxygen Delivery Method Room Air 08/04/24 06:42 Discharge Plan Discharge Patient Disposition: Still a Patient
[2024-08-04] MEDS: KETOROLAC TROMETHAMINE 30 MG/ML VIAL 15 MG IVP (07:15)
[2024-08-04] MEDS: METOCLOPRAMIDE HCL 10 MG/2 ML VIAL IVP (07:15)
[2024-08-04] MEDS: DIPHENHYDRAMINE HCL 50 MG/ML VIAL IV (07:16)
[2024-08-04] MEDS: 0.9 % SODIUM CHLORIDE 1,000 ML 1000 ML IV (07:44)
--- NOTE | 2024-08-04 08:02 | ED_ITS ---
HPI HPI - General Adult General Chief complaint: Headache Stated complaint: HEADACHE Time Seen by Provider: 08/04/24 06:45 Source: patient Mode of arrival: walk-in Limitations: no limitations History of Present Illness HPI narrative: 54-year-old female presents to the emergency department for headache and was initially seen by Dr. Sandoval and signed out to me after discussing the case wi th her thoroughly. Please see her full history and physical exam. Related Data Allergies Allergy/AdvReac Type Severity Reaction Status Date / Time No Known Drug Allergies Allergy Verified 08/04/24 06:41 Opioid HPI Opioid Management Most Recent Opioid Data: Last Pain Scale 10 08/04/24 07:15 08/04/24 Last MAR Pain Assessment 08/04/24 07:15 PFSH PFSH Social History Little interest or pleasure in doing things: not at all Feeling down, depressed, or hopeless: not at all Exam Constitutional Vital Signs, click to edit/add: Last Vital Signs Temp 97.9 F 08/04/24 06:42 Pulse 102 H 08/04/24 06:42 Resp 16 08/04/24 06:42 BP 168/101 H 08/04/24 06:42 Pulse Ox 100 08/04/24 06:42 O2 Del Method Room Air 08/04/24 06:42 Course Course Hospital Course: Upon initially seeing the patient, I had ordered her an IV, IV fluid 0.9% normal saline 1 L bolus, Toradol 15 mg IV push, Reglan 10 mg IV piggyback, Benadryl 50 mg IV push. Oncoming physician is Dr. Rodriguez and I will be doing signout at 7 AM. Vital Signs Vital signs: Vital Signs Temperature 97.9 F 08/04/24 06:42 Pulse Rate 102 H 08/04/24 06:42 Respiratory Rate 16 08/04/24 06:42 Blood Pressure 168/101 H 08/04/24 06:42 Pulse Oximetry 100 08/04/24 06:42 Oxygen Delivery Method Room Air 08/04/24 06:42 Temperature 97.9 F 08/04/24 06:42 Pulse Rate 102 H 08/04/24 06:42 Respiratory Rate 16 08/04/24 06:42 Blood Pressure 168/101 H 08/04/24 06:42 Pulse Oximetry 100 08/04/24 06:42 Oxygen Delivery Method Room Air 08/04/24 06:42 Medical Decision Making MDM Narrative Medical decision making narrative: The patient feels much better now after being given Toradol and Reglan and Benadryl. She is able to be discharged home. Treatment diagnosis and follow-up were discussed with the patient. I have no clinical suspicion of acute intracranial pathology. Differential Diagnosis Differential Diagnosis: Migraine headache, nonspecific headache Discharge Plan Discharge Chief Complaint: Headache Clinical Impression: Migraine Patient Disposition: Home, Self-Care Time of Disposition Decision: 08:01 Condition: Good Mode of Transportation: Private Vehicle Print Language: Bhutanese Instructions: Migraine Headache (ED) Referrals: Dick Mejia MD [Primary Care Provider] - 1 week
[2024-08-04 08:11] VITALS: BP 148/88; PULSE 74; O2SAT 100
== END 2024-08-04 08:14 | disposition home or self-care (01) ==
PROVIDERS: Emergency Provider Emergency Medicine; PCP Family Medicine
DX: G43.909 Migraine, unspecified, not intractable, without status migrainosus (principal)
CPT/HCPCS: 96374; 96375; 99284; J1200; J1885; J2765